=== PATIENT | male | born 1955 | race Caucasian/White ===

== ENCOUNTER 2020-12-19 08:47 | Outpatient (CLI) | payer OTHER, SELFPAY ==
--- NOTE | 2020-12-19 11:15 | NEURO_ITS ---
Impression: # Complains of numbness of hands, left more than right. History of non-insulin dependent diabetes. # Left Carpal Tunnel Syndrome. # Bilateral ulnar neuropathy, right more than left, across the elbows. # Normal needle/EMG exam. Nerve Conduction Studies Anti Sensory Summary Table Stim Site NR Peak (ms) P-T Amp (?V) Site1 Site2 Delta-P (ms) Dist (cm) Gomez (m/s) Left Median Anti Sensory (2-3nd Digit) NO RESPONSE Wrist NR Wrist 2-3nd Digit 14.0 Wrist 5.7 8.2 Wrist 2-3nd Digit 14.0 Right Median Anti Sensory (2-3nd Digit) Wrist 4.5 14.3 Wrist 2-3nd Digit 4.5 14.0 31 Wrist 4.6 9.9 Wrist 2-3nd Digit 4.5 14.0 31 Left Radial Anti Sensory (Base 1st Digit) Wrist 2.3 14.0 Wrist Base 1st Digit 2.3 0.0 Right Radial Anti Sensory (Base 1st Digit) Wrist 2.3 7.7 Wrist Base 1st Digit 2.3 0.0 Left Ulnar Anti Sensory (5th Digit) Wrist 3.4 25.5 Wrist 5th Digit 3.4 14.0 41 Right Ulnar Anti Sensory (5th Digit) Wrist 3.2 21.9 Wrist 5th Digit 3.2 14.0 44 Motor Summary Table Stim Site NR Onset (ms) O-P Amp (mV) Site1 Site2 Delta-0 (ms) Dist (cm) Gomez (m/s) Left Median Motor (Abd Poll Brev) Wrist 4.9 1.7 Elbow Wrist 5.6 31.0 55 Elbow 10.5 1.6 Right Median Motor (Abd Poll Brev) Wrist 4.0 2.3 Elbow Wrist 5.4 29.0 54 Elbow 9.4 1.9 Left Ulnar Motor (Abd Dig Minimi) Wrist 3.6 5.7 A Elbow Wrist 6.2 33.0 53 A Elbow 9.8 4.9 B Elbow Wrist 4.4 25.0 57 B Elbow 8.0 5.1 Right Ulnar Motor (Abd Dig Minimi) Wrist 3.3 4.9 A Elbow Wrist 6.3 31.0 49 A Elbow 9.6 4.5 B Elbow Wrist 3.9 22.0 56 B Elbow 7.2 2.6 F Wave Studies NR F-Lat (ms) L-R F-Lat (ms) Left Median (Mrkrs) (Abd Poll Brev) 32.25 1.02 Right Median (Mrkrs) (Abd Poll Brev) 31.23 1.02 Left Ulnar (Mrkrs) (Abd Dig Min) 32.96 1.24 Right Ulnar (Mrkrs) (Abd Dig Min) 31.72 1.24 EMG Side Muscle Nerve Root Ins Act Fibs Amp Dur Recrt Comment Right 1stDorInt Ulnar C8-T1 Nml Nml Nml Nml Nml Right Ext Indicis Radial (Post Int) C7-8 Nml Nml Nml Nml Nml Right Ext Digitorum Radial (Post Int) C7-8 Nml Nml Nml Nml Nml Right BrachioRad Radial C5-6 Nml Nml Nml Nml Nml Right PronatorTeres Median C6-7 Nml Nml Nml Nml Nml Right Abd Poll Brev Median C8-T1 Nml Nml Nml Nml Nml Left 1stDorInt Ulnar C8-T1 Nml Nml Nml Nml Nml Left Ext Indicis Radial (Post Int) C7-8 Nml Nml Nml Nml Nml Left Ext Digitorum Radial (Post Int) C7-8 Nml Nml Nml Nml Nml Left BrachioRad Radial C5-6 Nml Nml Nml Nml Nml Left PronatorTeres Median C6-7 Nml Nml Nml Nml Nml Left Abd Poll Brev Median C8-T1 Nml Nml Nml Nml Nml Right ABD Dig Min Ulnar C8-T1 Nml Nml Nml Nml Nml Left ABD Dig Min Ulnar C8-T1 Nml Nml Nml Nml Nml MTDD
== END 2020-12-19 08:48 | disposition home or self-care (01) ==
PROVIDERS: PCP Family Medicine; Visit Provider Orthopaedic Surgery
DX: M25.521 Pain in right elbow (principal); R20.0 Anesthesia of skin; G56.02 Carpal tunnel syndrome, left upper limb; G56.21 Lesion of ulnar nerve, right upper limb
CPT/HCPCS: 95886; 95911

== ENCOUNTER 2021-12-17 17:13 | Outpatient (CLI) | payer MEDICARE, SELFPAY ==
--- NOTE | ~2021-12-17 | CT_ITS ---
EXAMINATION: CT abdomen w con DATE: 12/17/2021 18:22 INDICATION: Abdominal pain TECHNIQUE: Computed tomography (CT) of the abdomen was performed with intravenous contrast. Automated exposure control and iterative reconstruction technique were employed. Exam dose: 1049.42 mGy-cm to cecil exam DLP. COMPARISON: 01/01/2018 CT abdomen pelvis FINDINGS: Limited examination: Examination excludes the upper portions of the liver, stomach, spleen. There is atelectasis at both dependent lower lobes. No space-occupying mass lesion of the included portions of the liver or spleen. The gallbladder is pr esent. No pericholecystic fluid or fat stranding. No bile duct dilatation. No pancreatic mass lesion, calcification or ductal dilatation. Normal morphology of the adrenal glands. 4.5 cm right renal cyst. Approximately 3.7 x 5.9 mm nonobstructing left renal calculus. No other urinary tract calculus or hyd roureteronephrosis. The urinary bladder is unremarkable. Mild prostate enlargement. Small fat-containing left inguinal hernia. Small fat-containing umbilical hernia. No bowel obstruction, bowel wall thickening, pneumatosis or intraperitoneal free air. Normal appendix . Minimal colonic diverticulosis; no CT evidence of diverticulitis. Normal caliber of the abdominal aorta. No intraperitoneal or retroperitoneal or pelvic mass lesion or adenopathy or ascites. Is degenerative change of the lower thoracic spine and severe degenerative disc disease of the lumba r and lumbosacral spine. Bilateral hip osteoarthritis. IMPRESSION: Limited examination, excluding upper abdomen Bibasilar atelectasis Nonobstructing 3.8 x 5.9 mm left renal calculus 4.5 cm right renal cyst Minimal colonic diverticulosis; no evidence of diverticulitis Normal appendix Reviewed, dictated and finalized at [facility]. Reviewed, dictated and finalized at [facility].
[2021-12-17 17:59] LABS: Estimated Glomerular Filt Rate > 60
== END 2021-12-17 17:14 | disposition home or self-care (01) ==
LOC: ANHIMG 17:20
PROVIDERS: PCP Family Medicine; Visit Provider Physician Assistant
DX: R10.84 Generalized abdominal pain (principal); R91.8 Other nonspecific abnormal finding of lung field; N20.0 Calculus of kidney; N28.1 Cyst of kidney, acquired; K57.30 Diverticulosis of large intestine without perforation or abscess without bleeding
CPT/HCPCS: 74160; Q9967